=== PATIENT | male | born 1995 | race Caucasian/White ===

== ENCOUNTER 2017-12-29 00:33 | Emergency (ER) | payer SELFPAY ==
[2017-12-29 00:41] VITALS: BP 132/65; BMI 23.7
--- NOTE | 2017-12-29 00:49 | DR.GENAD ---
HPI - PCP Primary Care Physician: NFD - Complaint/Symptoms Chief Complaint Doctors Comments: lesion on rt knee present several days, pt has 'smashed it' and gotten a small amt of drainage out of it. Pt with + flu contacts, c/o coughing thick mucous for the last 2 days and chills, no measured fevers Chief Complaint:: KNOT ON RIGHT LEG AND KNEE, COUGH/CHEST PAIN - Nurses notes reviewed Nurses Notes Review: Yes - Source History Provided: Patient, Parent - Mode of Arrival Mode of Arrival: Ambulatory - Timing Onset of Chief Complaint: 12/27/17 PMH - PMH Past Medical History: Yes ( abscess rt foot long ago) Past Medical History: Anxiety Past Surgical History: Yes Surgical History: Ortho Surgery Past Surgical History Comment: RIGHT FOOT - Family History History of Family Medical Conditions: Yes Family Medical History: Coronary Artery Disease, Hypertension - Social History Does patient currently use any type of tobacco product: Yes Have you used tobacco products in the last 12 months: Yes Type of Tobacco Use: Cigarettes Does any household member use tobacco: No Alcohol Use: Occasionally Do you use any recreational Drugs:: Yes (METH, WEED) Lives With: Family Lives Where: Home - infectious screening In the last 2 months have you had wt loss of >10#?: NO Have you had fever, night sweats or hemotysis?: No Have you traveled outside the country in the last 6 months?: No Isolation: Standard ROS - Review of Systems Constitutional: No Symptoms Reported, Chills Eyes: No Symptoms Reported ENTM: No Symptoms Reported Respiratoy: See HPI Cardiovascular: See HPI Gastrointestinal/Abdominal: No Symptoms Reported Genitourinary: No Symptoms Reported Neurological: No Symptoms Reported Musculoskeletal: Right, Knee Integumentary: Lumps Hematologic/Lymphatic: Swollen Glands (rt groin) Endocrine: No Symptoms Reported Psychiatric: No Symptoms Reported All Other Systems: Reviewed and Negative PE - Vital Signs Vitals: Temperature 98.2 F Pulse Rate 103 Respiratory Rate 24 Blood Pressure [Left Arm] 142/66 Blood Pressure [Right Arm] 122/72 Blood Pressure 132/65 O2 Sat by Pulse Oximetry 97 - General Limitations: No Limitations General Appearance: Alert, In No Apparent Distress - Head Head Exam: Normal Inspection - Eyes Eye exam: Normal Appearance - ENT ENT Exam: Normal Exam, Normal Oropharynx Throat Exam: Normal Inspection. negative: Tonsillar Erythema - Neck Neck Exam: Normal Inspection, Full ROM, Trachea Midline. negative: Tenderness, Meningismus, Lymphadenopathy - Respiratory Respiratory Exam: Bilateral Rhonchi - Cardiovascular Cardiovascular Exam: Normal Rhythm, Tachycardia (HR 103 on arrival). negative: Systolic Murmur, Diastolic Murmur - Abdominal Exam Abdominal Exam: Normal Inspection, Normal Bowel Sounds, Soft. negative: Distention, Tenderness - Extremities Extremities Exam: Other (3x3 cm cut abscess rt knee anterior aspect. Not organized for drainage,tender and erythematous) - Neurologic Neurological Exam: Alert, Oriented X3 - Psychiatric Psychiatric Exam: Normal Affect, Normal Mood - Skin Skin Exam: Other (see above) ROR - Labs Reviewed Laboratory Results Reviewed?: Yes (flu B +, K+ 3.0) Result Diagrams: 12/29/17 01:42 12/29/17 01:42 Laboratory: WBC 9.7 X10^3/uL (3.6-10.0) 12/29/17 01:42 RBC 4.79 X10^6/uL (4.7-6.0) 12/29/17 01:42 Hgb 14.5 g/dL (13.5-18.0) 12/29/17 01:42 Hct 40.9 % (42.0-54.0) L 12/29/17 01:42 MCV 85.4 fL (80.0-100.0) 12/29/17 01:42 MCH 30.3 pg (27.0-34.0) 12/29/17 01:42 MCHC 35.5 g/dL (33.0-35.0) H 12/29/17 01:42 RDW 13.6 % (11.6-16.5) 12/29/17 01:42 Plt Count 190 X10^3/uL (150.0-450.0) 12/29/17 01:42 MPV 10.0 fL (7.4-11.0) 12/29/17 01:42 Neut % 69.4 % (42.0-75.0) 12/29/17 01:42 Lymph % 16.8 % (21.0-51.0) L 12/29/17 01:42 [place] % 12.6 % (0.0-13.0) 12/29/17 01:42 Eos % 0.9 % (0.9-2.9) 12/29/17 01:42 Baso % 0.3 % (0.2-1.0) 12/29/17 01:42 Neut # 6.8 x10^3/uL (2.2-4.8) H 12/29/17 01:42 Lymph # 1.6 X10^3/uL (1.3-2.9) 12/29/17 01:42 [place] # 1.2 x10^3/uL (0.3-0.8) H 12/29/17 01:42 Eos # 0.1 x10^3/uL (0.0-0.2) 12/29/17 01:42 Baso # 0.0 X10^3/uL (0.0-0.1) 12/29/17 01:42 Absolute Nucleated RBC 0.1 /100WBC 12/29/17 01:42 Sodium 136 mmol/L (136-145) 12/29/17 01:42 Corrected Sodium TNP 12/29/17 01:42 Potassium 3.0 mmol/L (3.5-5.1) L* 12/29/17 01:42 Chloride 99 mmol/L (98-107) 12/29/17 01:42 Carbon Dioxide 27.9 mmol/L (21-32) 12/29/17 01:42 BUN 4 mg/dL (7-18) L 12/29/17 01:42 Creatinine 0.61 mg/dL (0.70-1.30) L 12/29/17 01:42 Est GFR (MDRD) Af Amer > 60 (>60) 12/29/17 01:42 Est GFR (MDRD) Non-Af > 60 (>60) 12/29/17 01:42 Glucose 99 mg/dL (65-99) 12/29/17 01:42 Calcium 8.1 mg/dL (8.5-10.1) L 12/29/17 01:42 Corrected Calcium TNP 12/29/17 01:42 Total Bilirubin 0.60 mg/dL (0.2-1.0) 12/29/17 01:42 AST 47 Units/L (15-37) H 12/29/17 01:42 ALT 131 Units/L (12-78) H 12/29/17 01:42 Alkaline Phosphatase 89 Units/L (46-116) 12/29/17 01:42 Total Protein 7.5 g/dL (6.4-8.2) 12/29/17 01:42 Albumin 3.4 g/dL (3.4-5.0) 12/29/17 01:42 Globulin 4.1 g/dL (2.5-4.5) 12/29/17 01:42 Albumin/Globulin Ratio 0.8 Ratio (1.1-2.1) L 12/29/17 01:42 Influenza Type A (PCR) Negative (NEGATIVE) 12/29/17 01:31 Influenza Type B (PCR) Positive (NEGATIVE) A 12/29/17 01:31 - XRAY XRAY Interpreted by: Radiologist XRAY Findings: nothing acute on 2vCXR - Diagnosis Discharge Problem: Influenza B, Cutaneous abscess of extremity - Discharge Plan Disposition: HOME, SELF-CARE Condition: Stable Prescriptions: Doxycycline Hyclate 100 mg PO BID #20 tablet. Oseltamivir Phosphate [Tamiflu] 75 mg PO BID #10 cap - Follow ups/Referrals Follow ups/Referrals: NFD,None [Primary Care Provider] - 3 days - Instructions Additional Notes - Additional Notes Additional Notes: pt urged to use warm compresses on abscess to see if it will organize for drainage
[2017-12-29] MEDS ORDERED: VIBRAMYCIN PO ONE ×2 (01:23→01:29)
--- NOTE | 2017-12-29 01:48 | RAD ---
Chest, PA and lateral Indication: Fever, cough, chest pain Comparison: 04/01/2013 Findings: The heart size is normal. The lungs are clear without focal infiltrates, pleural effusion, or pneumothorax. Impression: No acute chest process. Reported By:
[2017-12-29 01:56] LABS: BLOOD UREA NITROGEN 4 mg/dL (7-18); CALCIUM 8.1 mg/dL (8.5-10.1); CARBON DIOXIDE 27.9 mmol/L (21-32); CHLORIDE 99 mmol/L (98-107); CREATININE 0.61 mg/dL (0.70-1.30); SODIUM 136 mmol/L (136-145); eGFR BLACK RACES > 60 (>60); eGFR NON BLACK RACES > 60 (>60)
[2017-12-29 01:58] LABS: BASOPHILS % (AUTO) 0.3 % (0.2-1.0); EOSINOPHILS # (AUTO) 0.1 x10^3/uL (0.0-0.2); EOSINOPHILS % (AUTO) 0.9 % (0.9-2.9); HEMATOCRIT 40.9 % (42.0-54.0); HEMOGLOBIN 14.5 g/dL (13.5-18.0); LYMPHOCYTES # (AUTO) 1.6 X10^3/uL (1.3-2.9); LYMPHOCYTES % (AUTO) 16.8 % (21.0-51.0); MEAN CORPUSCULAR HEMOGLOBIN 30.3 pg (27.0-34.0); MEAN CORPUSCULAR HGB CONC 35.5 g/dL (33.0-35.0); MEAN CORPUSCULAR VOLUME 85.4 fL (80.0-100.0); MONOCYTES # (AUTO) 1.2 x10^3/uL (0.3-0.8); MONOCYTES % (AUTO) 12.6 % (0.0-13.0); NEUTROPHILS # (AUTO) 6.8 x10^3/uL (2.2-4.8); NEUTROPHILS % (AUTO) 69.4 % (42.0-75.0); PLATELET COUNT 190 X10^3/uL (150.0-450.0); RED BLOOD COUNT 4.79 X10^6/uL (4.7-6.0); RED CELL DISTRIBUTION WIDTH 13.6 % (11.6-16.5); WHITE BLOOD COUNT 9.7 X10^3/uL (3.6-10.0)
[2017-12-29 02:00] LABS: ALANINE AMINOTRANSFERASE 131 Units/L (12-78); ALBUMIN 3.4 g/dL (3.4-5.0); ALKALINE PHOSPHATASE 89 Units/L (46-116); ASPARTATE AMINO TRANSFERASE 47 Units/L (15-37); TOTAL PROTEIN 7.5 g/dL (6.4-8.2)
--- NOTE | 2017-12-29 02:51 | DR.GENAD ---
HPI - PCP Primary Care Physician: NFD - Complaint/Symptoms Chief Complaint:: KNOT ON RIGHT LEG AND KNEE, COUGH/CHEST PAIN - Nurses notes reviewed Nurses Notes Review: Yes - Source History Provided: Patient, Parent - Mode of Arrival Mode of Arrival: Ambulatory - Timing Onset of Chief Complaint: 12/27/17 PMH - PMH Past Medical History: Yes ( abscess rt foot long ago) Past Medical History: Anxiety Past Surgical History: Yes Surgical History: Ortho Surgery Past Surgical History Comment: RIGHT FOOT - Family History History of Family Medical Conditions: Yes Family Medical History: Coronary Artery Disease, Hypertension - Social History Does patient currently use any type of tobacco product: Yes Have you used tobacco products in the last 12 months: Yes Type of Tobacco Use: Cigarettes Does any household member use tobacco: No Alcohol Use: Occasionally Do you use any recreational Drugs:: Yes (METH, WEED) Lives With: Family Lives Where: Home - infectious screening In the last 2 months have you had wt loss of >10#?: NO Have you had fever, night sweats or hemotysis?: No Have you traveled outside the country in the last 6 months?: No Isolation: Standard PE - Vital Signs Vitals: Temperature 98.2 F Pulse Rate 103 Respiratory Rate 24 Blood Pressure [Left Arm] 142/66 Blood Pressure [Right Arm] 122/72 Blood Pressure 132/65 O2 Sat by Pulse Oximetry 97 ROR - Labs Reviewed Result Diagrams: 12/29/17 01:42 12/29/17 01:42 Laboratory: WBC 9.7 X10^3/uL (3.6-10.0) 12/29/17 01:42 RBC 4.79 X10^6/uL (4.7-6.0) 12/29/17 01:42 Hgb 14.5 g/dL (13.5-18.0) 12/29/17 01:42 Hct 40.9 % (42.0-54.0) L 12/29/17 01:42 MCV 85.4 fL (80.0-100.0) 12/29/17 01:42 MCH 30.3 pg (27.0-34.0) 12/29/17 01:42 MCHC 35.5 g/dL (33.0-35.0) H 12/29/17 01:42 RDW 13.6 % (11.6-16.5) 12/29/17 01:42 Plt Count 190 X10^3/uL (150.0-450.0) 12/29/17 01:42 MPV 10.0 fL (7.4-11.0) 12/29/17 01:42 Neut % 69.4 % (42.0-75.0) 12/29/17 01:42 Lymph % 16.8 % (21.0-51.0) L 12/29/17 01:42 [place] % 12.6 % (0.0-13.0) 12/29/17 01:42 Eos % 0.9 % (0.9-2.9) 12/29/17 01:42 Baso % 0.3 % (0.2-1.0) 12/29/17 01:42 Neut # 6.8 x10^3/uL (2.2-4.8) H 12/29/17 01:42 Lymph # 1.6 X10^3/uL (1.3-2.9) 12/29/17 01:42 [place] # 1.2 x10^3/uL (0.3-0.8) H 12/29/17 01:42 Eos # 0.1 x10^3/uL (0.0-0.2) 12/29/17 01:42 Baso # 0.0 X10^3/uL (0.0-0.1) 12/29/17 01:42 Absolute Nucleated RBC 0.1 /100WBC 12/29/17 01:42 Sodium 136 mmol/L (136-145) 12/29/17 01:42 Corrected Sodium TNP 12/29/17 01:42 Potassium 3.0 mmol/L (3.5-5.1) L* 12/29/17 01:42 Chloride 99 mmol/L (98-107) 12/29/17 01:42 Carbon Dioxide 27.9 mmol/L (21-32) 12/29/17 01:42 BUN 4 mg/dL (7-18) L 12/29/17 01:42 Creatinine 0.61 mg/dL (0.70-1.30) L 12/29/17 01:42 Est GFR (MDRD) Af Amer > 60 (>60) 12/29/17 01:42 Est GFR (MDRD) Non-Af > 60 (>60) 12/29/17 01:42 Glucose 99 mg/dL (65-99) 12/29/17 01:42 Calcium 8.1 mg/dL (8.5-10.1) L 12/29/17 01:42 Corrected Calcium TNP 12/29/17 01:42 Total Bilirubin 0.60 mg/dL (0.2-1.0) 12/29/17 01:42 AST 47 Units/L (15-37) H 12/29/17 01:42 ALT 131 Units/L (12-78) H 12/29/17 01:42 Alkaline Phosphatase 89 Units/L (46-116) 12/29/17 01:42 Total Protein 7.5 g/dL (6.4-8.2) 12/29/17 01:42 Albumin 3.4 g/dL (3.4-5.0) 12/29/17 01:42 Globulin 4.1 g/dL (2.5-4.5) 12/29/17 01:42 Albumin/Globulin Ratio 0.8 Ratio (1.1-2.1) L 12/29/17 01:42 Influenza Type A (PCR) Negative (NEGATIVE) 12/29/17 01:31 Influenza Type B (PCR) Positive (NEGATIVE) A 12/29/17 01:31 - Diagnosis Discharge Problem: Influenza B, Hypokalemia Cutaneous abscess of extremity Qualifiers: Site of cutaneous abscess of extremity: lower extremity Laterality: right Qualified Code(s): L02.415 - Cutaneous abscess of right lower limb - Discharge Plan Disposition: HOME, SELF-CARE Condition: Stable Prescriptions: Doxycycline Hyclate 100 mg PO BID #20 tablet. Oseltamivir Phosphate [Tamiflu] 75 mg PO BID #10 cap - Follow ups/Referrals Follow ups/Referrals: NFD,None [Primary Care Provider] - 3 days - Instructions Additional Notes - Additional Notes Additional Notes: pt also with hypokalemia, will Rx Kdur x 1 week
== END 2017-12-29 02:26 | disposition home or self-care (01) ==
LOC: ER 00:33
DX: J10.1 Influenza due to other identified influenza virus with other respiratory manifestations (principal); L02.415 Cutaneous abscess of right lower limb
CPT/HCPCS: 36415; 71046; 80053; 85025; 87502; 99282; 99283